=== PATIENT | male | born 1975 | race African-American/Black ===

== ENCOUNTER 2021-04-03 15:05 | Emergency (ER) | payer SELFPAY ==
[~2021-04-03] VITALS: Ht 188 cm; Wt 111.4 kg
[~2021-04-03 15:05] MED LIST: ADVIL200 MG PO; FLEXERIL10 MG PO; NO HOME MEDICATIONS; NORCO 325 MG-51 TAB PO
[2021-04-03 15:10] VITALS: TEMP 98
[2021-04-03] MEDS ORDERED: FLEXERIL 1010 MG/TAB PO (16:02)
[2021-04-03] MEDS ORDERED: NAPROSYN500 MG PO (16:02)
[2021-04-03 16:11] VITALS: BP 151/106; PULSE 81
== END 2021-04-03 16:19 | disposition home or self-care (01) ==
LOC: COL.ER 15:05
DX: S19.9XXA Unspecified injury of neck, initial encounter (principal); S89.91XA Unspecified injury of right lower leg, initial encounter; M54.50 Low back pain, unspecified; Z98.890 Other specified postprocedural states; Z79.01 Long term (current) use of anticoagulants; V49.50XA Passenger injured in collision with unspecified motor vehicles in traffic accident, initial encounter